=== PATIENT | male | born 1975 | race Caucasian/White ===

== ENCOUNTER 2021-06-24 09:53 | Outpatient (CLI) | payer OTHER ==
[2021-06-24 10:40] VITALS: BP 138/105
--- NOTE | 2021-06-24 10:40 | SLEEP CARE CONSULTATION ---
Information from patient questionnaire entered by Oscar Hicks MA. I have reviewed and concur with the information entered by Oscar Hicks MA. This document represents the service I personally performed and the decisions made by , Susie Stratton ARNP. History of Present Illness Service Date and Time: 06/24/2021 0953 Reason for Visit: New patient Chief Complaint: reports: Snoring, Observed pauses in breathing, Frequent awakenings at night Date of Onset: 10 years Usual bedtime: 2200 Time it takes to fall asleep: 5-10 minutes Snores at night: Yes Observed to quit breathing while asleep: Yes Sleeps alone due to snoring: Yes Number of times waking at night: 0, doesn't remember waking up or dreams Reasons for waking at night: reports: Choking, Snoring, Gasping for air, Bathroom Toss, Turn, or Twitch while sleeping: Yes Recalls having dreams: No Usually gets out of bed at: 0500 for wakeup but doesn't get out of bed until has too Feels refreshed in the morning: No Morning headache: Yes (1-2 times a week, last until gets his coffee) Sleepy or fatigued during the day: Yes Ever fallen asleep while driving: No Takes day naps: Yes (once a week, 1-2 hours) Dreams during day naps: No Prior sleep studies: No Additional HPI information: I had the pleasure of seeing KEREN SANDERSON today regarding the possibility of him having a sleep disorder. His current complaints are frequent night awakenings, observed pauses in breathing and snoring. He will wake up early and have a hard time falling back to sleep. He will also snooze his alarm several times before getting up. 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 He is currently on the day shift. 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 Patient is and lives in [place]. Have you smoked in the past 12 months: Yes Cigarettes per day (20/pack): 1 Years of smokin Smoking Pack Years: 0 Alcohol use: Yes Alcohol amount and frequency: plenty; drinks with dinner, varies upon meal Caffeine use: Yes Caffeine amount and frequency: plenty; averages 8 cups a day of coffee Family History Family history of sleep disordered breathing: No Family Hx Sleep Apnea: Mother: Snoring, Father: Snoring, Sibling: Snoring, Grandparent: Snoring, Other: Snoring Allergies and Home Medications Known drug allergies: No Drug allergies reviewed: Yes (NKDA) Home medication list reviewed: Yes Allergy and home medication list: Multivitamins Review of Systems Cardiovascular: reports: high blood pressure Respiratory: reports: shortness of breath, sputum production Gastrointestinal: reports: heartburn, diarrhea Neurological: reports: headaches Psychiatric: reports: anxiety, mood disorder Ear/Nose/Throat: reports: wisdom teeth removed. denies: dry mouth/throat, injury to nose, tonsillectomy Endocrine: reports: sluggishness Immunologic: denies: allergies to food or environment Physical Exam Vital signs obtained and entered by: Vandana HICKS CMA AALB Blood Pressure: 138/105 (right) Cuff size: wrist Heart Rate: 95 O2 Saturation: 98 (with mask) Height: 5 ft 11 in Weight: 220 lb Body Mass Index: 30.7 BMI Classification: Obese Neck circumference: 18.75 (inches) Nostrils: patent to airflow Mouth and throat: narrow oropharynx Soft palate: long Hard palate: normal Uvula: long Uvula visualization: 50% Mallampati Class II Tongue: enlarged in size with teeth li on lateral edges Tonsils: 1+ Neck: normal w/o lymphadenopathy or thyromegaly Heart: regular rate and rhythm Lungs: clear bilaterally Impression and Plan 1. Suspected Obstructive Sleep Apnea-Hypopnea Syndrome, as loud and irregular snoring, observed cessation of breath while asleep, gasping or choking in sleep, morning headache, cognitive impairment, and excessive daytime sleepiness. Narrow oropharynx and obesity are common predisposing factors for obstructive sleep apnea-hypopnea syndrome. I recommend proceeding to polysomnography to confirm the diagnosis and to assess severity. If the patient has significant sleep disordered breathing, a manual CPAP titration study will also be performed to find the optimal treatment pressure. I informed the patient of what the sleep studies involve and after some discussion, obtained agreement to proceed. The pathophysiology of obstructive sleep apnea-hypopnea syndrome was discussed with the patient and health risks of cardiovascular and cerebrovascular disease if not treated. AAS brochure for obstructive sleep apnea-hypopnea syndrome given and reviewed. Risks of drowsy driving discussed in detail and patient advised to avoid long distance driving and to crop puller at the first sign of drowsiness. Patient agreed to plan. * Schedule polysomnography +- manual CPAP titration study and return in 1-2 weeks after the study to discuss result and initiate therapy. * Avoid long distance driving or driving when feeling sleepy. * Avoid alcohol, sedative and muscle relaxant around bedtime. * Attempt to lose weight. * Review instructions provided by trained office staff on how to prepare for the sleep study. * Return for follow-up after sleep study completed. Counseling Topics: Weight loss health impact Visit Type: In Office Time Spent with Patient (minutes): 31 Provider Statement: I spent 100% of the Face to Face Visit with the patient with greater than 50% spent counseling the patient and coordination of care.
== END 2021-06-24 09:54 | disposition home or self-care (01) ==
LOC: SC 09:53
PROVIDERS: ATTEND Nurse Practitioner Family
DX: R06.83 Snoring (principal); R06.81 Apnea, not elsewhere classified; R41.89 Other symptoms and signs involving cognitive functions and awareness; R51.9 Headache, unspecified; G47.10 Hypersomnia, unspecified; E66.9 Obesity, unspecified; Z68.30 Body mass index [BMI] 30.0-30.9, adult
CPT/HCPCS: 99203; 99212

== ENCOUNTER 2021-06-30 14:57 | Outpatient (CLI) | payer OTHER | END 2021-06-30 14:58 | disposition home or self-care (01) | LOC: SC 14:57 | PROVIDERS: ATTEND Nurse Practitioner Family | DX: G47.33 Obstructive sleep apnea (adult) (pediatric) (principal); R09.02 Hypoxemia | CPT/HCPCS: 95806 ==

== ENCOUNTER 2021-07-16 13:30 | Outpatient (CLI) | payer OTHER ==
[2021-07-16 14:04] VITALS: BP 137/78
--- NOTE | 2021-07-16 14:04 | SLEEP CARE CONSULTATION ---
Information from patient questionnaire entered by Oscar King MA. I have reviewed and concur with the information entered by Oscar King MA. This document represents the service I personally performed and the decisions made by , Susie Stratton ARNP. History of Present Illness Service Date and Time: 07/16/2021 1330 Initial [place] Sleepiness Scale score: 15 Current [place] Sleepiness Scale score: 9 (2021) Additional HPI information: KEREN SANDERSON returns for follow up and results of the recently performed home sleep study. I explained the pathophysiology behind obstructive sleep apnea. We then spent quite a bit of time discussing different treatment options. For mild obstructive sleep apnea, surgery and oral appliance are alternatives to nasal CPAP therapy but in moderate or severe cases, nasal CPAP is the most effective and reliable treatment. I reviewed the impact of weight changes on sleep apnea and strongly recommended losing weight. After some discussion, the patient opted to go with the nasal CPAP therapy. Nasal autoCPAP set at 4-15 cmH20 will be ordered with rationale explained. A manual titration study will be ordered if unable to find optimal pressure with office adjustments. I explained how CPAP machine works and what to expect when using the machine. Using CPAP every night in order to get used to it was emphasized. Patient advised to put CPAP mask on before getting into bed so as not to fall asleep without CPAP. To assist acclimation to CPAP use, it could also be used for a short time during day while reading or watching TV. The patient was instructed to call the CPAP supplier to discuss any mechanical problem that may occur. If the mask given is uncomfortable or is difficult to keep on through the night even with adjustment, contact the CPAP supplier as many will replace with another mask style if notified before 30 days. If snoring or perceives is not getting enough air or too much air from the machine, notify this office. Patient counseled not drink alcohol less than 4 hours before bedtime as it can increase snoring and apnea. Patient was cautioned about risks of drowsy driving until sleepiness symptoms resolve. Sleep Study - Results Prior sleep studies: No Polysomnography/Home Sleep Study results: Physician Impression: The quality of the study is fair due to occasional unreliable pulse oximetry signal. The length of the study is adequate (> 240 minutes). Please also see the tabulated and graphic data. 1. Obstructive Sleep Apnea-Hypopnea (ICD-10 G47.33), mild, with an AHI of 6.5/hr and denia SaO2 of 82%. During the study, the patient had 20 apneas (20 obstructive, 0 central, 0 mixed) and 25 hypopneas. The longest episode lasted 112.0 seconds. The respiratory events occurred independently of sleep stage and body position (supine AHI was 7.0 and non-supine, 5.85). 2. Hypoxemia (ICD-10 R09.02), mild, with the lowest oxygen saturation of 82 % and 156.7 minutes with SaO2 under 90%. Baseline oxygen saturation was normal (Average oxygen saturation was 91%). However, the pulse oximetry data appeared unreliable and the hypoxia may be exaggerated. Allergies and Home Medications Home medication list reviewed: Yes (no changes) Review of Systems Review of systems same as previous: Yes (no changes) Physical Exam Vital signs obtained and entered by: ELLIE DECKER Blood Pressure: 137/78 (RIGHT) Cuff size: wrist Heart Rate: 101 O2 Saturation: 97 (WITH PAPER MASK) Height: 5 ft 11 in Weight: 220 lb Body Mass Index: 30.7 BMI Classification: Obese Impression and Plan 1. Obstructive Sleep Apnea-Hypopnea Syndrome, mild, with lowest oxygen saturation of 82%. Obviously this is the cause of the patients symptoms of unrefreshed sleep, and excessive daytime sleepiness. Positive pressure therapy could benefit his overall health and reduce cardiovascular and cerebrovascular adverse events. The patient will be started on nasal autoCPAP therapy with pressure set at 4-15 cmH2O. Patient also wants to check in coverage for the oral appliance. He may change from the CPAP to the oral appliance for treatment. He wants to talk to his primary doctor before he makes his final decision. A manual titration study will be completed if unable to find optimal treatment pressure with office adjustments. Compliance guidelines also reviewed. A copy of compliance guidelines will be given for reference at check out. * Nasal auto CPAP therapy, pressure at 4-15 cm H2O. * Attempt to lose weight. * Avoid alcohol consumption near bedtime. * The patient is again cautioned about driving until sleepiness completely resolves. * Return one month after CPAP obtained. I will assess response to therapy and compliance at that time. Counseling Topics: Weight loss health impact Visit Type: In Office Time Spent with Patient (minutes): 23 Provider Statement: I spent 100% of the Face to Face Visit with the patient with greater than 50% spent counseling the patient and coordination of care.
== END 2021-07-16 13:31 | disposition home or self-care (01) ==
LOC: SC 13:30
PROVIDERS: ATTEND Nurse Practitioner Family
DX: G47.33 Obstructive sleep apnea (adult) (pediatric) (principal); E66.9 Obesity, unspecified; Z68.30 Body mass index [BMI] 30.0-30.9, adult
CPT/HCPCS: 99212; 99213

== ENCOUNTER 2021-09-21 09:08 | Emergency (ER) | payer OTHER ==
[2021-09-21] MEDS ORDERED: DEXAMETHASONE 10 MG/ML VIAL IM STA (10:57)
[2021-09-21] MEDS ORDERED: KETOROLAC 60 MG/2 ML VIAL IM STA (10:57)
--- NOTE | 2021-09-21 11:00 | ED Physician Documentation ---
History of Present Illness - Stated complaint Stated Complaint: BACK PX - Chief complaint Chief Complaint: Back Pain - History obtained from History obtained from: Patient - Additonal information Additional information: The patient comes to the emergency department chief complaint of low back pain for the last couple of days. The patient states that originally, he was doing some yard work and pulled the starter cord on his lawnmower when he felt a pain and his lower lumbar spine around his beltline. Patient states he kept working in the yard and then yesterday, was doing some gardening felt as though he had aggravated the painful area. He states he woke up this morning feeling very stiff and painful and tight in his lower lumbar spine and the surrounding musculature. No pain or numbness shooting down his legs. No weakness in his legs. No loss of bowel or bladder continence. He states any position is painful and hurts more with rotation or bending. Patient denies any history of prior back problems. He denies any abdominal pain. No nausea, vomiting, or diarrhea/constipation. No hematuria. No dysuria, frequency, or fevers. No chills. No other complaints at this time. Review of Systems Ten Systems: 10 systems reviewed and negative Constitutional: reports: Reviewed and negative Eyes: reports: Reviewed and negative Ears: reports: Reviewed and negative Nose: reports: Reviewed and negative Throat: reports: Reviewed and negative Cardiac: reports: Reviewed and negative Respiratory: reports: Reviewed and negative GI: reports: Reviewed and negative : reports: Reviewed and negative Skin: reports: Reviewed and negative Musculoskeletal: reports: Back pain Neurologic: reports: Reviewed and negative Psychiatric: reports: Reviewed and negative Endocrine: reports: Reviewed and negative Immunocompromised: reports: Reviewed and negative PD PAST MEDICAL HISTORY - Present Medications Home Medications: Ambulatory Orders Medication Instructions Recorded Confirmed Cyclobenzaprine [Flexeril] 10 mg PO TID PRN #20 tablet 09/21/21 - Allergies Allergies/Adverse Reactions: Allergies Allergy/AdvReac Type Severity Reaction Status Date / Time No Known Drug Allergies Allergy Verified 09/21/21 09:26 PD ED PE NORMAL - Vitals Vital signs reviewed: Yes - General General: Alert and oriented X 3, No acute distress, Well developed/nourished - HEENT HEENT: Atraumatic, PERRL, EOMI, Moist mucous membranes - Neck Neck: Supple, no meningeal sign - Cardiac Cardiac: RRR, No murmur, Strong equal pulses - Respiratory Respiratory: No respiratory distress, Clear bilaterally - Abdomen Abdomen: Soft, Non tender, Non distended - Back Back: Other (Tenderness palpation over the L3-5 area of the spine without step- off. Adjacent paraspinal musculature tenderness, as well. No SI joint tenderness. Patient's movements are stiff and slow with regard to his low back.) - Derm Derm: Normal color, Warm and dry, No rash - Extremities Extremities: No deformity, No edema, No calf tenderness / cord - Neuro Neuro: Alert and oriented X 3 - Psych Psych: Normal mood, Normal affect Results - Vitals Vitals: Vital Signs - 24 hr 09/21/21 09/21/21 09:22 12:00 Temperature 36.4 C L 36.6 C Heart Rate 98 85 Respiratory 16 16 Rate Blood Pressure 153/96 H 153/98 H O2 Saturation 99 98 Oxygen O2 Source Room air - Rads (name of study) CT lumbar spine Radiology: Final report received, EMP read indepedently, See rad report (No acute disease) PD MEDICAL DECISION MAKING - ED course Complexity details: reviewed results, re-evaluated patient, considered differential, d/w patient ED course: The patient was treated symptomatically in the emergency department with Toradol and Decadron, as he was driving. He was sent for CT of his lumbar spine, Which was unremarkable. I have advised him to follow-up with his primary care physician if he is not feeling better in a couple of weeks to discuss whether he should have MRI, physical therapy or any other intervention. Departure - Departure Disposition: 01 Home, Self Care Clinical Impression: Low back strain Qualifiers: Encounter type: initial encounter Qualified Code(s): S39.012A - Strain of muscle, fascia and tendon of lower back, initial encounter Condition: Stable Instructions: ED Sprain Strain Lumbar Prescriptions: Cyclobenzaprine [Flexeril] 10 mg PO TID PRN #20 tablet PRN Reason: Spasms Comments: Your CT scan looks good. There is no evidence of acute trauma to your spine. Most likely, you have a soft tissue injury to the tendinous or ligamentous connections, which will heal on its own over the next several weeks. If you do not notice any improvement in the next couple of weeks, Yousef follow-up with your primary doctor to discuss having an MRI done. Please take the medication for inflammation and muscle spasm, as needed. Discharge Date/Time: 09/21/21 12:58
--- NOTE | 2021-09-21 12:24 | CT Report ---
PROCEDURE: LUMBAR SPINE WO INDICATIONS: injury/pain TECHNIQUE: Noncontrast 3 mm thick sections acquired from the T12 level to the sacrum. Sagittal and coronal refo rmats were constructed. For radiation dose reduction, the following was used: automated exposure co ntrol, adjustment of mA and/or kV according to patient size. COMPARISON: None. FINDINGS: Image quality: Excellent. Bones: There is normal bony alignment. No acute vertebral body compression fractures. No suspiciou s lytic or blastic bony lesions. Central spinal caliber is of normal overall caliber. No pars defec ts. Soft tissues: No retroperitoneal masses or hematomas. Visualized aorta is normal in caliber. IMPRESSION: No visualized fracture or dislocation. Reviewed by: Betsy Ko MD on 09/21/2021 12:22 PM PDT Approved by: Betsy Ko MD on 09/21/2021 12:22 PM PDT Station ID: [id number]
[2021-09-21 12:59] VITALS: BP 153/98
== END 2021-09-21 12:58 | disposition home or self-care (01) ==
LOC: ED 09:08
DX: S39.012A Strain of muscle, fascia and tendon of lower back, initial encounter (principal); X50.0XXA Overexertion from strenuous movement or load, initial encounter; Y93.H2 Activity, gardening and landscaping
CPT/HCPCS: 96372; 99282; 99284

== ENCOUNTER 2024-01-04 11:58 | Outpatient (CLI) | payer OTHER ==
--- NOTE | 2024-01-04 14:24 | Ultrasound Report ---
PROCEDURE: Abdomen Limited INDICATIONS: ELEVATED LFTS TECHNIQUE: Real-time focused scanning was performed of the abdomen, with image documentation. COMPARISONS: None. FINDINGS: Liver: Liver size at the upper limits of normal measuring 18.1 cm in length. Diffusely hyperechoic p arenchyma. Smooth margin. No solid mass. Gallbladder: No gallstones, sludge, wall thickening or pericholecystic edema. Biliary ducts: Intrahepatic bile ducts are non-dilated. Extrahepatic bile duct caliber measures 4 m m. Normal is 6-7 mm or less in diameter, or 10 mm or less post-cholecystectomy. Pancreas: The pancreas was not well seen due to bowel gas. Right kidney: Normal in size and echotexture. Right kidney measures 12.4 cm long. No hydronephrosis or nephrolithiasis. No solid masses. No complex renal cystic lesions which require follow-up. IVC: Intrahepatic inferior vena cava is patent. Miscellaneous: No free abdominal fluid. IMPRESSION: Diffusely hyperechoic hepatic parenchyma suggestive of steatosis or other intrinsic liver disease. Reviewed by: Junie Castañeda MD on 01/04/2024 2:22 PM PDT Approved by: Junie Castañeda MD on 01/04/2024 2:22 PM PDT Station ID: [id number]
== END 2024-01-04 11:59 | disposition home or self-care (01) ==
LOC: DI 11:58
PROVIDERS: ATTEND Nurse Practitioner Family
DX: R79.89 Other specified abnormal findings of blood chemistry (principal)